=== PATIENT | male | born 2000 | race Caucasian/White ===

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

== ENCOUNTER 2024-04-20 17:49 | Emergency (ER) | payer OTHER, SELFPAY ==
[2024-04-20] MEDS ORDERED: predniSONE 20 MG TAB ONE (18:23)
[2024-04-20] MEDS ORDERED: Azithromycin 250 MG TAB ONE (18:23)
== END 2024-04-20 18:28 | disposition home or self-care (01) ==
LOC: BURERS 17:49
DX: J11.83 Influenza due to unidentified influenza virus with otitis media (principal); H72.90 Unspecified perforation of tympanic membrane, unspecified ear; H66.009 Acute suppurative otitis media without spontaneous rupture of ear drum, unspecified ear; F17.210 Nicotine dependence, cigarettes, uncomplicated
CPT/HCPCS: 87400; 99283; J7512